=== PATIENT | male | born 1985 | race Caucasian/White ===

== ENCOUNTER 2016-09-01 08:51 | Emergency (ER) | payer SELFPAY ==
--- NOTE | 2016-09-01 08:54 | EDPHY ---
H & P Time Seen by Provider: 09/01/16 08:54 HPI/ROS: CHIEF COMPLAINT: Right sacroiliac pain HISTORY OF PRESENT ILLNESS: The patient presents to the ED complaining of right sacroiliac pain which has worsened over the past day. The patient reports the pain began after lifting heavy boxes at work. The patient denies any focal numbness or weakness. He has no history of fever. He denies IV drug use. He has no complaints of bowel or bladder dysfunction. He denies any saddle anesthesia. The patient denies any abdominal pain or additional complaints. He has no prior history of back surgery. REVIEW OF SYSTEMS: A comprehensive 10 point review of systems is otherwise negative aside from elements mentioned in the history of present illness. Source: Patient Exam Limitations: No limitations - Medical/Surgical History PMH: Past medical history: Noncontributory - Family History Significant Family History: No pertinent family hx - Social History Smoking Status: Never smoked - Physical Exam Exam: General Appearance: Alert, no distress Head: Atraumatic Abdomen: Abdomen is soft and nontender, pelvis stable Skin: No lacerations, No abrasion Back: Isolated tenderness to palpation in the right sacroiliac joint Extremities: Atraumatic, normal range of motion bilateral lower extremities Neurological: 5/5 strength bilateral lower extremities, sensation intact to light touch, 2+ DTRs noted at the knee and ankle bilaterally, no clonus Constitutional: Initial Vital Signs Temperature (C) 36.7 C 09/01/16 08:54 Heart Rate 76 09/01/16 08:54 Respiratory Rate 16 09/01/16 08:54 Blood Pressure 127/100 H 09/01/16 08:54 O2 Sat (%) 94 09/01/16 08:54 O2 Delivery Mode Room Air Allergies/Adverse Reactions: No Known Allergies Allergy (Verified 09/01/16 08:57) Home Medications: Medication Instructions Recorded Hydrocodone/APAP 5/325 [Hector 1 - 2 each PO Q6 PRN #20 tab 09/01/16 5/325] Ibuprofen [Motrin (*)] 600 mg PO TID PRN #20 tab 09/01/16 Medical Decision Making ED Course/Re-evaluation: The patient presents to the emergency department with right sacroiliitis. The patient has no evidence of a spinal cord deficiency. The patient will be treated with NSAIDs, muscle relaxants and narcotics as needed for intractable pain. The patient is given customary aftercare instructions and follow-up regarding sacroiliitis. He is given return precautions. Departure - Departure Disposition: Home, Routine, Self-Care Clinical Impression: Sacroiliitis Condition: Good Instructions: Sacroiliitis (ED), Lower Back Exercises (ED) Additional Instructions: 1. Take Ibuprofen or Motrin 600 mg by mouth three times a day. 2. Hector as needed for severe pain 3. Flexeril has been prescribed as a muscle relaxant. 4. Take Ibuprofen or Motrin 600 mg by mouth three times a day. Referrals: [facility] [Outside] - As per Instructions
[2016-09-01 08:57] VITALS: BP 127/100; PULSE 76; RESP 16; TEMP 98.1; O2SAT 94
== END 2016-09-01 09:36 | disposition home or self-care (01) ==
DX: M46.1 Sacroiliitis, not elsewhere classified (principal)

== ENCOUNTER 2017-02-13 10:57 | Emergency (ER) | payer SELFPAY ==
[2017-02-13 12:11] LABS: % IMMATURE GRANULYOCYTES 0.4 % (0.0-1.1); ABSOLUTE IMMATURE GRANULOCYTES 0.04 10^3/uL (0.00-0.10); ADD DIFF? NO; ADD MORPH? NO; ADD SCAN? NO; ATYPICAL LYMPHOCYTE FLAG 10 (0-99); FRAGMENT RBC FLAG 0 (0-99); HEMATOCRIT 49.4 % (40.0-51.0); HEMOGLOBIN 17.3 g/dL (13.7-17.5); LEFT SHIFT FLG 0 (0-99); LIPEMIA HEMOLYSIS FLAG 90 (0-99); MEAN CELL HEMOGLOBIN 32.4 pg (27.9-34.1); MEAN CELL VOLUME 92.5 fL (81.5-99.8); MEAN PLATELET VOLUME 10.1 fL (8.7-11.7); PLATELET CLUMPS FLAG 0 (0-99); PLATELET COUNT 213 10^3/uL (150-400); RED BLOOD CELL COUNT 5.34 10^6/uL (4.40-6.38); RED CELL DISTRIBUTION WIDTH 12.7 % (11.5-15.2)
[2017-02-13] MEDS ORDERED: LIDOCAINE 2% VISCOUS 15 ML UDCUP PO ONE (12:25)
[2017-02-13] MEDS ORDERED: PANTOPRAZOLE SODIUM 40 MG in NS 100 ML IV ONE (12:25)
[2017-02-13] MEDS ORDERED: MAG HYDROX/AL HYDROX/SIMETH 30 ML UDCUP PO ONE (12:25)
[2017-02-13 12:33] LABS: ALANINE AMINOTRANSFERASE 32 IU/L (21-72); ALBUMIN 4.6 g/dL (3.5-5.0); ALKALINE PHOSPHATASE 77 IU/L (38-126); ANION GAP 14 mEq/L (8-16); ASPARTATE AMINOTRANSFERASE 17 IU/L (17-59); CARBON DIOXIDE 21 mEq/l (22-31); CHLORIDE 108 mEq/L (97-110); GLOMERULAR FILTRATION RATE > 60; GLUCOSE 87 mg/dL (70-100); POTASSIUM 4.2 mEq/L (3.5-5.2); SODIUM 143 mEq/L (134-144); TOTAL PROTEIN 7.8 g/dL (6.3-8.2)
[2017-02-13 12:50] VITALS: RESP 16
[2017-02-13 12:55] LABS: ALBUMIN 4.8 g/dL (3.5-5.0); BILIRUBIN-CONJUGATED 0.5 mg/dL (0.0-0.5); BILIRUBIN-UNCONJUGATED 0.5 mg/dL (0.0-1.1); TOTAL PROTEIN 7.4 g/dL (6.3-8.2)
[2017-02-13] MEDS ORDERED: HALOPERIDOL LACT 5 MG/ML INJ IVP ONE (13:39)
--- NOTE | 2017-02-13 14:26 | EDPHY ---
H & P Stated Complaint: l sided abd pain/dx last year with IBS when seen for same at [facility] Time Seen by Provider: 02/13/17 12:20 HPI/ROS: Chief Complaint: Abdominal pain HPI: 31-year-old male presenting with worsening upper abdominal pain for the last 3 weeks. Patient does have a history of similar was diagnosed with irritable bowel syndrome about a year ago. Has not had any constipation associated with this. Has had some nausea and vomiting. No hematemesis or melena. No diarrhea. Pain is described in the epigastric region. He has been taking ibuprofen and Tylenol with no relief. No fevers or chills. Pain is about a 9/10. He does smoke daily marijuana fairly heavily. Drinks occasional alcohol but not daily. Pain is described as a burning. ROS: 10 point Review of Systems is negative except as noted in the HPI. PMH: Irritable bowel syndrome, asthma Medications: None Allergies: No known drug allergies Social History: No smoking, occasional alcohol, daily marijuana Family History: non-contributory Physical Exam: Gen: Awake, Alert, No Distress HEENT: Nose: no rhinorrhea Eyes: PERRLA, EOMI Mouth: Moist mucosa Neck: Supple, no JVD Chest: nontender, lungs clear to auscultation Heart: S1, S2 normal, no murmur Abd: Soft, moderate epigastric tenderness, no right upper quadrant tenderness, no lower abdominal tenderness, no guarding Back: no CVA tenderness, no midline tenderness Ext: no edema, non-tender Skin: no rash Neuro: CN II-XII intact, Sensation grossly intact, Strength 5/5 in bilateral upper and lower extremities - Personal History Current Tetanus/Diphtheria Vaccine: Yes - Medical/Surgical History Hx Asthma: No Hx Chronic Respiratory Disease: No Hx Diabetes: No Hx Cardiac Disease: No Hx Renal Disease: No Hx Cirrhosis: No Hx Alcoholism: No Hx HIV/AIDS: No Hx Splenectomy or Spleen Trauma: No Other PMH: IBS - Social History Smoking Status: Never smoked Constitutional: Initial Vital Signs Temperature (C) 36.7 C 02/13/17 11:01 Heart Rate 68 02/13/17 11:01 Respiratory Rate 18 02/13/17 11:01 Blood Pressure 140/89 H 02/13/17 11:01 O2 Sat (%) 97 02/13/17 11:01 O2 Delivery Mode Room Air Allergies/Adverse Reactions: No Known Allergies Allergy (Verified 02/13/17 11:00) Home Medications: Medication Instructions Recorded NK [No Known Home Meds] 02/13/17 Medical Decision Making ED Course/Re-evaluation: Patient's CBC, chemistry and LFTs are normal. He has not had any relief with GI cocktail or Protonix. Will give him 2.5 mg of Haldol now and reassess. Patient has had significant relief after 2.5 mg of Haldol. I suspect that his symptoms are gastritis and also some cannabinoid hyperemesis contributing as well. I have counseled him on this continuing use of marijuana and using antacids. I have also instructed him to discontinue using ibuprofen for abdominal pain. - Data Points Laboratory Results: Laboratory Results 02/13/17 11:15 02/13/17 11:15 02/13/17 02/13/17 02/13/17 11:15 11:15 11:15 WBC 10.44 10^3/uL H 10^3/uL (3.80-9.50) RBC 5.34 10^6/uL 10^6/uL (4.40-6.38) Hgb 17.3 g/dL g/dL (13.7-17.5) Hct 49.4 % % (40.0-51.0) MCV 92.5 fL fL (81.5-99.8) MCH 32.4 pg pg (27.9-34.1) MCHC 35.0 g/dL g/dL (32.4-36.7) RDW 12.7 % % (11.5-15.2) Plt Count 213 10^3/uL 10^3/uL (150-400) MPV 10.1 fL fL (8.7-11.7) Neut % (Auto) 62.5 % % (39.3-74.2) Lymph % (Auto) 27.6 % % (15.0-45.0) [place] % (Auto) 7.6 % % (4.5-13.0) Eos % (Auto) 1.5 % % (0.6-7.6) Baso % (Auto) 0.4 % % (0.3-1.7) Nucleat RBC Rel Count 0.0 % % (0.0-0.2) Absolute Neuts (auto) 6.53 10^3/uL H 10^3/uL (1.70-6.50) Absolute Lymphs (auto) 2.88 10^3/uL 10^3/uL (1.00-3.00) Absolute Monos (auto) 0.79 10^3/uL 10^3/uL (0.30-0.80) Absolute Eos (auto) 0.16 10^3/uL 10^3/uL (0.03-0.40) Absolute Basos (auto) 0.04 10^3/uL 10^3/uL (0.02-0.10) Absolute Nucleated RBC 0.00 10^3/uL 10^3/uL (0-0.01) Immature Gran % 0.4 % % (0.0-1.1) Immature Gran # 0.04 10^3/uL 10^3/uL (0.00-0.10) Sodium 143 mEq/L mEq/L (134-144) Potassium 4.2 mEq/L mEq/L (3.5-5.2) Chloride 108 mEq/L mEq/L (97-110) Carbon Dioxide 21 mEq/l L mEq/l (22-31) Anion Gap 14 mEq/L mEq/L (8-16) BUN 8 mg/dL mg/dL (7-23) Creatinine 1.0 mg/dL mg/dL (0.7-1.3) Estimated GFR > 60 Glucose 87 mg/dL mg/dL (70-100) Calcium 10.0 mg/dL mg/dL (8.5-10.4) Total Bilirubin 1.0 mg/dL mg/dL 1.0 mg/dL mg/dL (0.1-1.4) (0.1-1.4) Conjugated Bilirubin 0.5 mg/dL mg/dL (0.0-0.5) Unconjugated Bilirubin 0.5 mg/dL mg/dL (0.0-1.1) AST 18 IU/L IU/L 17 IU/L IU/L (17-59) (17-59) ALT 33 IU/L IU/L 32 IU/L IU/L (21-72) (21-72) Alkaline Phosphatase 76 IU/L IU/L 77 IU/L IU/L (38-126) (38-126) Total Protein 7.4 g/dL g/dL 7.8 g/dL g/dL (6.3-8.2) (6.3-8.2) Albumin 4.8 g/dL g/dL 4.6 g/dL g/dL (3.5-5.0) (3.5-5.0) Lipase 70.0 IU/L IU/L (23-300) Medications Given: Discontinued Medications Al Hydroxide/Mg Hydroxide (Maalox Susp) 30 ml PO ONCE ONE Stop: 02/13/17 12:26 Last Admin: 02/13/17 12:35 Dose: 30 ml Haloperidol Lactate (Haldol Injection) 2.5 mg IVP EDNOW ONE Stop: 02/13/17 13:40 Last Admin: 02/13/17 13:41 Dose: 2.5 mg Pantoprazole Sodium 40 mg/ (Sodium Chloride) 100 mls @ 200 mls/hr IV EDNOW ONE Stop: 02/13/17 12:54 Last Admin: 02/13/17 12:35 Dose: 100 mls Lidocaine (Lidocaine 2% Viscous) 15 ml PO ONCE ONE Stop: 02/13/17 12:26 Last Admin: 02/13/17 12:34 Dose: 15 ml Departure - Departure Disposition: Home, Routine, Self-Care Clinical Impression: Gastritis Condition: Good Instructions: Gastritis (ED) Additional Instructions: Do not use ibuprofen for upper abdominal pain as this can contribute to an ulcer. I would recommend discontinuing or decreasing year marijuana use as this can contribute to chronic abdominal pain syndromes. You may take acetaminophen and antacid medications such as ranitidine as needed for pain. Follow up with primary care physician in 2-3 days for re-evaluation. Referrals: [facility],. [Clinic] - As per Instructions
[2017-02-13 14:53] VITALS: BP 118/68; PULSE 72; TEMP 97.9; O2SAT 98
== END 2017-02-13 14:52 | disposition home or self-care (01) ==
DX: K29.70 Gastritis, unspecified, without bleeding (principal); J45.909 Unspecified asthma, uncomplicated
CPT/HCPCS: 96374

== ENCOUNTER 2017-09-23 09:23 | Emergency (ER) | payer OTHER ==
[2017-09-23 09:34] VITALS: TEMP 98.1
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
[2017-09-23] MEDS ORDERED: HYDROCODONE/APAP 5/325 TAB ONE (09:52)
[2017-09-23] MEDS ORDERED: HYDROCODONE/APAP 5/325 TAB PO ONE (09:53)
[2017-09-23] MEDS ORDERED: ONDANSETRON DISINTEGRATING 4 MG TAB PO ONE (09:53)
[2017-09-23 10:58] VITALS: BP 142/81; PULSE 58; RESP 16; O2SAT 94
== END 2017-09-23 10:56 | disposition home or self-care (01) ==
LOC: CED 09:23
DX: S39.92XA Unspecified injury of lower back, initial encounter (principal); S16.1XXA Strain of muscle, fascia and tendon at neck level, initial encounter; V49.49XA Driver injured in collision with other motor vehicles in traffic accident, initial encounter; Y92.410 Unspecified street and highway as the place of occurrence of the external cause; Y99.8 Other external cause status; Y93.89 Activity, other specified
CPT/HCPCS: 72100-PO; 72125-PO